=== PATIENT | male | born 1990 | race Caucasian/White ===

== ENCOUNTER 2019-08-29 18:33 | Emergency (ER) | payer OTHER, SELFPAY ==
--- NOTE | 2019-08-29 18:47 | ED.GENADULT ---
HPI - General Adult General Chief complaint: Skin/Abscess/Foreign Body Stated complaint: pos staph infection under left armpit Time Seen by Provider: 08/29/19 19:25 Source: patient Mode of arrival: ambulatory Limitations: no limitations History of Present Illness HPI narrative: 28-year-old male patient presents to the [facility] with complaints of a wound to the left axilla that started yesterday. Patient states he has had staph before in the same area. Patient states last time he had staph was in April and was given a topical pelvis and oral antibiotic. Patient states that he noticed that it is starting to come back again yesterday. Patient states that there is some burning pain with slight itchiness noted. Denies any fevers, chest pain, shortness of breath. Related Data Allergies Allergy/AdvReac Type Severity Reaction Status Date / Time No Known Allergies Allergy Verified 08/29/19 19:28 Review of Systems Review of Systems: Narrative: CONSTITUTIONAL: Denies fever, chills, or sweats. EYES: Denies visual changes, redness, or discharge. ENT: Denies rhinorrhea, congestion, sore throat, or otalgia. CARDIOVASCULAR: Denies chest pain, palpitations, or edema. RESPIRATORY: Denies cough or dyspnea. GASTROINTESTINAL: Denies abdominal pain, nausea, vomiting, or diarrhea. GENITOURINARY: Denies dysuria or hematuria. SKIN: Denies rash or itching. Positive rash/wound to left axilla since yesterday MUSCULOSKELETAL: Denies back pain, joint pain, or myalgia. NEUROLOGIC: Denies headache, numbness, or weakness. PSYCHIATRIC: Denies anxiety or depression. PMFSH Comments At the time of my signature I agree with nursing past medical history, surgical, social, and family history. There is no relevant family history pertinent to the presenting complaint. Exam Narrative: Exam Narrative: GENERAL: Well-appearing, well-nourished, and in no acute distress. HEAD: Normocephalic, atraumatic. EYES: PERRLA and EOMI. ENT: Nares clear, no rhinorrhea or epistaxis. Mucous membranes moist. NECK: Supple. No lymphadenopathy CHEST: Clear to auscultation. No respiratory distress. HEART: Regular rate and rhythm. No murmur heard. Normal peripheral pulses. ABDOMEN: Soft, nontender, nondistended, normal active bowel sounds. EXTREMITIES: Normal range of motion. No edema. SKIN: Warm, dry, no rash. Patient has some erythema and what appears to be some flaky dry skin noted to the anterior axilla along with shiny erythema skin noted to the folds of the axilla that appear dry and flaky. There is a little bit of breaks in the skin. No obvious abscess is palpated, no warmth noted. NEURO: No focal deficits. Alert and oriented x3. Course Vital Signs Vital signs: Vital signs reviewed. Medical Decision Making Differential Diagnosis Differential Diagnosis: Differential diagnosis: Abscess, cellulitis, hidradenitis, laceration, puncture wound, yeast infection Discussed with patient that I know he is worried about another staph infection but this appears to be more of a yeast type infection to me. Discussed with him that since he has had staph before we will go ahead and cover him with some clindamycin today and I will also send him home with an antifungal cream that I want him to apply to the area. Discussed with patient if he has worsening symptoms which is high fevers, chest pain, shortness of breath or the wound/rash continues to spread and he needs to see his primary doctor. Patient verbalized understanding denies any other questions or concerns at this time. Critical Care Time Critical Care Time Critical Care Time: No Discharge Plan Discharge Clinical Impression: Tinea corporis, Bacterial skin infection of upper extremity Patient Disposition: Home, Self-Care Condition: Stable Instructions: Antibiotic Form, Tinea Corporis (ED) Additional Instructions: Tinea corporis, or ringworm, is a skin infection caused by a fungus. It usually affects the skin on your fa
[2019-08-29 19:16] VITALS: BP 145/86; PULSE 99; RESP 16; TEMP 36.8; O2SAT 99
== END 2019-08-29 19:36 | disposition home or self-care (01) ==
PROVIDERS: Emergency Provider Nurse Practitioner Family; PCP Family Medicine
DX: B35.4 Tinea corporis (principal); A49.9 Bacterial infection, unspecified; Z86.14 Personal history of Methicillin resistant Staphylococcus aureus infection
CPT/HCPCS: 99213; G0463